=== PATIENT | male | born 1945 | race Caucasian/White ===

== ENCOUNTER 2017-12-13 09:43 | Inpatient (IN) | payer MEDICARE, BC ==
[~2017-12-13] VITALS: Ht 182.9 cm; Wt 82.5 kg
[2017-12-13 10:34] LABS: MICROSCOPIC AUTO
[2017-12-13 10:35] LABS: CULTURE INDICATED? NO
[2017-12-13 10:38] LABS: AMPHETAMINE SCREEN, URINE Negative (Negative); BARBITURATE SCREEN, URINE Negative (Negative); BENZODIAZEPINE SCREEN, URINE Negative (Negative); CANNABINOID SCREEN, URINE Negative (Negative); COCAINE SCREEN, URINE Negative (Negative); METHADONE SCREEN, URINE Negative (Negative); OPIATE SCREEN, URINE Negative (Negative)
[2017-12-13 10:47] LABS: BASOPHILS # (AUTO) 0.04 x10^3/uL (0-0.1); BASOPHILS % (AUTO) 1 % (0-1); EOSINOPHILS # (AUTO) 0.09 x10^3/uL (0-0.4); EOSINOPHILS % (AUTO) 2 % (1-7); LYMPHOCYTES # (AUTO) 1.02 x10^3/uL (1-3.4); LYMPHOCYTES % (AUTO) 19 % (22-44); MD NO; MEAN CORPUSCULAR HEMOGLOBIN 33.3 pg (27.5-34.5); MEAN CORPUSCULAR HGB CONC 34.8 g/dL (33.2-36.2); MEAN CORPUSCULAR VOLUME 95.9 fL (81-97); MEAN PLATELET VOLUME 7.1 fL (7.4-10.4); MONOCYTES # (AUTO) 0.38 x10^3/uL (0.2-0.8); MONOCYTES % (AUTO) 7 % (2-9); NEUTROPHILS # (AUTO) 3.81 x10^3/uL (1.8-6.8); NEUTROPHILS % (AUTO) 71 % (42-75); PLATELET COUNT 252 x10^3/uL (130-400); RED BLOOD COUNT 5.07 x10^6/uL (4.38-5.82); RED CELL DISTRIBUTION WIDTH 13.5 % (9.4-14.8)
[2017-12-13 10:49] LABS: INTERNATIONAL NORMALIZED RATIO 1.03 (0.93-1.1); PROTHROMBIN TIME 10.6 Seconds (9.6-11.5)
[2017-12-13 10:52] LABS: ALANINE AMINOTRANSFERASE 36 U/L (12-78); ALBUMIN 4.1 g/dL (3.4-5.0); ANION GAP 5 mmol/L (5-15); CALCIUM 8.5 mg/dL (8.5-10.1); CHLORIDE 111 mmol/L (98-107)
[2017-12-13] MEDS ORDERED: hydrALAzine 20 MG/ML, 1ML ONE (10:53)
[2017-12-13 10:56] LABS: ALKALINE PHOSPHATASE 79 U/L (45-117); BILIRUBIN,TOTAL 0.7 mg/dL (0.2-1.0); TOTAL PROTEIN 7.2 g/dL (6.4-8.2); TROPONIN I < 0.015 ng/mL (0.000-0.045)
[2017-12-13] MEDS ORDERED: hydrALAzine 20 MG/ML, 1ML IV ONE (11:00)
[2017-12-13] MEDS ORDERED: SODIUM CHLORIDE FLUSH 10ML SYR IVF ONE (11:00)
[2017-12-13] MEDS ORDERED: niCARDipine 50 MG in DEXTROSE 5% 500 ML IV PRN (11:14)
[2017-12-13] MEDS ORDERED: ASPIRIN 81 MG TABLET CHEW ONE (11:55)
[2017-12-13] MEDS ORDERED: ASPIRIN 81 MG TABLET CHEW PO ONE (12:00)
[2017-12-13] MEDS ORDERED: SODIUM CHLORIDE FLUSH 10ML SYR IVF PRN (12:00)
[2017-12-13] MEDS ORDERED: POLYETHYLENE GLYCOL 17 GM PACKET PO PRN ×2 (12:30)
[2017-12-13] MEDS ORDERED: ACETAMINOPHEN 325 MG TABLET PO PRN (12:30)
[2017-12-13] MEDS ORDERED: DOCUSATE 100 MG CAPSULE PO PRN ×2 (12:30)
[2017-12-13] MEDS ORDERED: BISACODYL 10 MG SUPP PR PRN ×2 (12:30)
[2017-12-13] MEDS ORDERED: GADOBUTROL 10 MMOL/10 ML VIAL ONE (13:13)
[2017-12-13] MEDS ORDERED: LORazepam 2 MG/ML, 1ML ONE (13:25)
[2017-12-13] MEDS ORDERED: LORazepam 2 MG/ML, 1ML IVPush ONE (14:00)
[2017-12-13] MEDS: ENOXAPARIN 40 MG/0.4 ML SQ SCH (17:10)
[2017-12-13 18:08] LABS: TROPONIN I < 0.015 ng/mL (0.000-0.045)
[2017-12-13 19:31] VITALS: BP 151/82
[2017-12-13] MEDS: ATORVASTATIN 80 MG TABLET PO SCH (20:29)
[2017-12-13] MEDS ORDERED: FAMOTIDINE 20 MG/2 ML IVPush SCH (21:00)
[2017-12-13 23:08] LABS: TROPONIN I < 0.015 ng/mL (0.000-0.045)
[2017-12-14 04:44] LABS: BASOPHILS # (AUTO) 0.02 x10^3/uL (0-0.1); BASOPHILS % (AUTO) 0 % (0-1); EOSINOPHILS # (AUTO) 0.04 x10^3/uL (0-0.4); EOSINOPHILS % (AUTO) 1 % (1-7); LYMPHOCYTES # (AUTO) 1.12 x10^3/uL (1-3.4); LYMPHOCYTES % (AUTO) 17 % (22-44); MD NO; MEAN CORPUSCULAR HGB CONC 34.4 g/dL (33.2-36.2); MEAN PLATELET VOLUME 6.9 fL (7.4-10.4); MONOCYTES # (AUTO) 0.52 x10^3/uL (0.2-0.8); MONOCYTES % (AUTO) 8 % (2-9); NEUTROPHILS # (AUTO) 4.86 x10^3/uL (1.8-6.8); NEUTROPHILS % (AUTO) 74 % (42-75); PLATELET COUNT 252 x10^3/uL (130-400); RED CELL DISTRIBUTION WIDTH 13.4 % (9.4-14.8)
[2017-12-14 04:50] LABS: ALANINE AMINOTRANSFERASE 34 U/L (12-78); ALBUMIN 3.8 g/dL (3.4-5.0); ANION GAP 6 mmol/L (5-15); CALCIUM 8.6 mg/dL (8.5-10.1); CHLORIDE 108 mmol/L (98-107); CHOLESTEROL, TOTAL 181 mg/dL (140-239); CREATININE 0.77 mg/dL (0.7-1.3); TRIGLYCERIDES 85 mg/dL (50-200); VLDL CHOLESTEROL 17 mg/dL (0-25)
[2017-12-14 04:58] LABS: ALKALINE PHOSPHATASE 72 U/L (45-117); BILIRUBIN,TOTAL 0.8 mg/dL (0.2-1.0); CHOL/HDL RATIO 3.9; HDL CHOL % 26 % (26-37); HDL CHOLESTEROL (DIRECT) 47 mg/dL (40-60); LDL CHOLESTEROL,CALCULATED 117 mg/dL (54-169); LDL/HDL RATIO 2.5 (0.5-3.0); TOTAL PROTEIN 6.7 g/dL (6.4-8.2)
[2017-12-14] MEDS ORDERED: hydrALAzine 20 MG/ML, 1ML IV PRN (08:30)
[2017-12-14] MEDS ORDERED: CARVEDILOL 3.125 MG TABLET ONE (09:23)
[2017-12-14] MEDS: CARVEDILOL 3.125 MG TABLET PO SCH ×2 (09:24→17:07)
[2017-12-14] MEDS: ASPIRIN 81 MG TABLET EC PO SCH (09:25)
[2017-12-14] MEDS: LISINOPRIL 10 MG TABLET PO SCH ×2 (09:25→20:42)
[2017-12-14] MEDS ORDERED: ERGOCALCIFEROL 50,000 UNIT CAPSULE PO SCH (09:30)
[2017-12-14] MEDS: ENOXAPARIN 40 MG/0.4 ML SQ SCH (14:53)
[2017-12-14 17:09] VITALS: BP 149/99
[2017-12-14] MEDS ORDERED: CARVEDILOL 3.125 MG TABLET PO SCH (18:00)
[2017-12-14 19:07] VITALS: BP 147/90
[2017-12-14] MEDS: ATORVASTATIN 80 MG TABLET PO SCH (20:42)
[2017-12-15 01:00] VITALS: BP 127/82
[2017-12-15] MEDS: ASPIRIN 81 MG TABLET EC PO SCH (05:42)
[2017-12-15] MEDS: CARVEDILOL 3.125 MG TABLET PO SCH (05:42)
[2017-12-15 06:54] VITALS: BP 128/88
[2017-12-15 09:25] VITALS: BP 166/110
[2017-12-15] MEDS: LISINOPRIL 10 MG TABLET PO SCH (09:25)
[2017-12-15] MEDS ORDERED: ATOR20TA9 PO (10:16)
[2017-12-15] MEDS ORDERED: LISI-167 PO (10:16)
[2017-12-15] MEDS ORDERED: ERGO500017 PO (10:16)
[2017-12-15] MEDS ORDERED: CARV3.1212 PO (10:16)
[2017-12-15] MEDS ORDERED: ASPI-621 PO (10:16)
[2017-12-15 10:25] VITALS: BP 138/91
== END 2017-12-15 13:02 | disposition home or self-care (01) | DRG 78 ==
LOC: ED 11:46 → EDIP 11:47 → ED 12:26 → CCU 12:50 → 4WST 12-14 16:15 → DCLOUNGE 12-15 12:49
PROVIDERS: ADMIT Hospitalist; ATTEND Hospitalist
DX: I67.4 Hypertensive encephalopathy (principal); I16.9 Hypertensive crisis, unspecified; I65.22 Occlusion and stenosis of left carotid artery; E55.9 Vitamin D deficiency, unspecified; I10 Essential (primary) hypertension; G25.81 Restless legs syndrome; I16.0 Hypertensive urgency
CPT/HCPCS: 36415; 70450; 70544; 70549; 70553; 71045; 80053; 80061; 80307; 81001; 82140; 82306; 82607; 83735; 84100; 84443; 84484; 85025; 85610; 85730; 87081; 93005; 93306; 95819; A9585; J1650; J7060; J0360; J2060; S0028